=== PATIENT | male | born 1965 | race Caucasian/White ===

== ENCOUNTER → 2020-12-18 | Outpatient (CLI) | payer OTHER ==
[~2020-12-18] MED LIST: ACID REDUCER150 MG PO; ALL DAY ALLERGY10 M3 PO; ATORVASTATIN CA20 MG PO; ATORVASTATIN CA40 MG PO; BYDUREON P2 MG/0.65 SQ; CIALIS5 MG PO; CIPRO500 MG PO; ECOTRIN81 MG PO; EFFEXOR 37.537.5 MG PO; EFFEXOR XR150 MG PO; ELIQUIS 5 MG TAB5 MG PO; ENTRESTO 24 MG1 EACH PO; ETODOLAC ER500 MG PO; FAMOTIDINE20 MG PO; FLOMAX0.4 MG PO; GLUCOPHAGE1000 MG PO; IBUPROFEN800 MG PO; IMDUR ER TAB 3030 MG PO; LEVAQUIN500 MG PO; LISINOPRIL20 MG PO; LORTAB 5-325 M1 EACH PO; MIRTAZAPINE15 MG PO; NEURONTIN300 MG PO; NORCO 7.5-3251 EACH PO; NORVASC 5 MG TAB5 MG PO; NOVOLOG 10100 UNITS2 INJ; PERCOCET 7.5-31 EACH PO; PRINIVIL10 MG PO; REMERON15 MG PO; SUMATRIPTAN SU100 MG PO; TOPROL XL25 MG PO; TRESIBA SQ; TRESIBA100 UNIT/1 SC; VICTOZA 1818 MG/3 ML SC; VITAMIN D31000 UNI1 PO; [UNRECOGNIZED DRUG - CODE] IV
== END ==
LOC: HEART 5 08:13
DX: I42.0 Dilated cardiomyopathy (principal); R06.02 Shortness of breath; I20.9 Angina pectoris, unspecified
CPT/HCPCS: 78452; 93306; A9502; J2785

== ENCOUNTER → 2021-04-02 | Outpatient (CLI) | payer OTHER | LOC: KOH-I 03-23 09:00 | DX: M50.21 Other cervical disc displacement, high cervical region (principal); M25.78 Osteophyte, vertebrae | CPT/HCPCS: 72141 ==

== ENCOUNTER → 2021-05-16 | Outpatient (CLI) | payer OTHER | LOC: KOH-I 05-14 10:00 | DX: S93.122A Dislocation of metatarsophalangeal joint of left great toe, initial encounter (principal); S93.125A Dislocation of metatarsophalangeal joint of left lesser toe(s), initial encounter; X58.XXXA Exposure to other specified factors, initial encounter; L97.429 Non-pressure chronic ulcer of left heel and midfoot with unspecified severity; R93.6 Abnormal findings on diagnostic imaging of limbs | CPT/HCPCS: 73700 ==

== ENCOUNTER → 2021-07-20 | Outpatient (CLI) | payer OTHER | LOC: MRI 14:45 | DX: M86.8X7 Other osteomyelitis, ankle and foot (principal); I73.9 Peripheral vascular disease, unspecified; L03.116 Cellulitis of left lower limb | CPT/HCPCS: 73718; 93926 ==

== ENCOUNTER 2021-08-20 11:14 | Inpatient (IN) | payer OTHER ==
[~2021-08-20] VITALS: Ht 193 cm; Wt 115.7 kg
[~2021-08-20 11:14] MED LIST changes: -NEURONTIN300 MG PO; +NEURONTIN600 MG PO; +TRESIBA FL100 UNIT/1 SQ; -TRESIBA100 UNIT/1 SC
[2021-08-20] MEDS ORDERED: GABAPENTIN600 MG PO (15:48)
[2021-08-20] MEDS ORDERED: AMARYL2 MG PO (15:51)
[2021-08-20] MEDS ORDERED: HUMALOG100 UNIT/3 SQ (15:52)
[2021-08-20] MEDS ORDERED: LISINOPRIL20 MG PO (15:53)
[2021-08-20] MEDS ORDERED: FLOMAX 0.4 MG0.4 MG PO (15:54)
[2021-08-20] MEDS ORDERED: ASPIRIN EC81 MG PO (15:54)
[2021-08-20] MEDS ORDERED: ROCEPHIN 2 GM AD2 GM IV (15:57)
[2021-08-20 15:58] LABS: HEMOGLOBIN 10.7 gm/dl (14.0-17.5); WHITE BLOOD COUNT 9.8 K/UL (4.5-11.0)
[2021-08-20] MEDS ORDERED: DOCUSATE SODIU100 MG PO (15:59)
[2021-08-20] MEDS ORDERED: TRULICITY1.5 MG/0.5 SQ (15:59)
[2021-08-20] MEDS ORDERED: LEVOFLOXACIN750 MG PO (16:12)
[2021-08-20] MEDS ORDERED: BACTRIM DS TAB1 EACH PO (16:13)
[2021-08-21 03:26] LABS: HEMOGLOBIN 10.2 gm/dl (14.0-17.5); RED BLOOD COUNT 3.85 M/UL (4.20-5.50)
[2021-08-21 04:21] LABS: BUN/CREATININE RATIO 20 (0-10)
[2021-08-22 04:15] LABS: BUN/CREATININE RATIO 18 (0-10)
--- NOTE | 2021-08-22 05:53 | NUR ---
ATTEMPTED TO CHANGE LEFT FOOT DRESSING. PATIENT REFUSED STATING THAT HE WAS GOING TO HAVE IT CUT OFF LATER TODAY SO IT DOESN'T MATTER. PATIENT WAS EDUCATED AND VERBALIZED UNDERSTANDING BUT STILL REFUSED TO ALLOW ME TO DO THE DRESSING CHANGE.
[2021-08-23 06:48] LABS: BUN/CREATININE RATIO 15 (0-10)
[2021-08-24 05:25] LABS: BUN/CREATININE RATIO 12 (0-10)
--- NOTE | 2021-08-25 05:48 | NUR ---
PATIENT REFUSED DRESSING CHANGE HE STATED "LEAVE MY ROOM I DONT WANT BOTHERED". PATIENT WAS EDUCATED ON THE IMPROTANCE OF THE DRESSING CHANGE AND STILL REFUSED
[2021-08-26] MEDS ORDERED: VITAMIN C 500500 MG PO (14:52)
[2021-08-26] MEDS ORDERED: HYDROCODON-ACE1 EAC2 PO ×2 (14:52→17:30)
[2021-08-26] MEDS ORDERED: BISACODYL10 MG PR (15:01)
[2021-08-26] MEDS ORDERED: NOVOLOG MI100 UNIT/1 SC (15:16)
[2021-08-26] MEDS ORDERED: LISINOPRIL20 MG PO (15:16)
[2021-08-26] MEDS ORDERED: LISINOPRIL5 MG PO ×2 (15:19→17:30)
[2021-08-26] MEDS ORDERED: FLOMAX 0.4 MG0.4 MG PO (17:27)
[2021-08-26] MEDS ORDERED: GABAPENTIN600 MG PO (17:27)
[2021-08-26] MEDS ORDERED: NEURONTIN600 MG PO (17:27)
[2021-08-27] MEDS ORDERED: NEURONTIN600 MG PO (11:13)
[2021-08-27 12:58] LABS: RED BLOOD COUNT 3.77 M/UL (4.20-5.50); WHITE BLOOD COUNT 11.4 K/UL (4.5-11.0)
[2021-08-27 13:34] LABS: BUN/CREATININE RATIO 16 (0-10)
[2021-08-27] MEDS ORDERED: INVANZ 1 GM VIAL1 GM IV (13:45)
[2021-08-27] MEDS ORDERED: LEVOFLOXACIN750 MG PO (13:45)
--- NOTE | 2021-08-27 17:59 | NUR ---
PICC LINE DRESSING TO [facility] CHANGED, PLAN TO BE DISCHARGED, AWAITING DR MARCELO FOR FINAL ORDERS , DENIES NEEDS OR C/O A THIS TIME HE HAS HIS CALL HERNANDEZ AND PHONE IN REACH AND FAMILY AT THE BEDSIDE.
--- NOTE | 2021-08-27 18:06 | NUR ---
HOLD XARELILAN UNTIL SEEN BY DR. MARCELO PER DR. HELM. PATIENT AWARE; DESIREE CHERRY R.N.
--- NOTE | 2021-08-27 18:09 | NUR ---
SPOKE WITH DR MARCELO HE ORDERED TO CONTINUE XARELTO WITH DISCHARGE.
[2021-08-27] MEDS ORDERED: XARELTO2.5 MG PO (18:11)
--- NOTE | 2021-08-27 19:33 | NUR ---
PT D/C VERBALIZING UNDERSTANDING, SCRIPTS IN HAND, I WAS GOING TO DO DRESSING CHANGE TEACHING BUT PT DAUGHTER HAD ALREADY DONE. HE DECLINED MY TEACHING, AND THEY SAID THEYVE DONE THIS BEFORE THEY KNEW WHAT THEY WERE DOING, PT DECLINED WHEEL CHAIR SAID HE DIDN'T WANT TO WAIT FOR ONE. HE WAS STANDING USING CRUTCHES AND HAD FAMILY WITH HIM.
== END 2021-08-27 19:32 | disposition home health service (06) | DRG 240 ==
LOC: M/S 13:26
PROVIDERS: Internal Medicine Infectious Disease; Podiatrist Foot & Ankle Surgery; ADMIT Internal Medicine
PROC: 0Y6N0ZB Detachment at Left Foot, Partial 2nd Ray, Open Approach (ICD-10-PCS; 2021-08-22)
PROC: 0Y6N0ZC Detachment at Left Foot, Partial 3rd Ray, Open Approach (ICD-10-PCS; 2021-08-22)
PROC: 0Y6N0ZD Detachment at Left Foot, Partial 4th Ray, Open Approach (ICD-10-PCS; 2021-08-22)
PROC: 0Y6N0ZF Detachment at Left Foot, Partial 5th Ray, Open Approach (ICD-10-PCS; 2021-08-22)
PROC: 0Y6N0Z9 Detachment at Left Foot, Partial 1st Ray, Open Approach (ICD-10-PCS; principal; 2021-08-22 16:30)
DX: E11.52 Type 2 diabetes mellitus with diabetic peripheral angiopathy with gangrene (principal); M86.8X7 Other osteomyelitis, ankle and foot; N17.9 Acute kidney failure, unspecified; E11.69 Type 2 diabetes mellitus with other specified complication; E11.621 Type 2 diabetes mellitus with foot ulcer; L97.529 Non-pressure chronic ulcer of other part of left foot with unspecified severity; Z20.822 Contact with and (suspected) exposure to COVID-19; E11.40 Type 2 diabetes mellitus with diabetic neuropathy, unspecified; E66.9 Obesity, unspecified; D72.829 Elevated white blood cell count, unspecified; G89.29 Other chronic pain; E11.42 Type 2 diabetes mellitus with diabetic polyneuropathy; K59.03 Drug induced constipation; T40.2X5A Adverse effect of other opioids, initial encounter; N40.0 Benign prostatic hyperplasia without lower urinary tract symptoms; Z79.82 Long term (current) use of aspirin; Z91.14 Patient's other noncompliance with medication regimen; Z79.2 Long term (current) use of antibiotics; Z79.4 Long term (current) use of insulin; Z89.432 Acquired absence of left foot; Z98.890 Other specified postprocedural states; Z83.3 Family history of diabetes mellitus; Z82.49 Family history of ischemic heart disease and other diseases of the circulatory system; Z68.31 Body mass index [BMI] 31.0-31.9, adult
CPT/HCPCS: 36415; 71045; 73630; 73718; 80048; 80053; 80202; 81001; 82962; 83036; 83735; 85025; 85027; 85610; 86140; 87040; 87070; 87205; 93005; 97116; 97116-GP-CQ; 97162; 97530; 97530-GP-CQ; J1100; J1335; J1650; J2001; J2250; J2270; J2405; J2704; J2795; J3010; J3370; J7030; J7070; J7120; Q4133; U0002

== ENCOUNTER → 2021-11-15 | Outpatient (CLI) | payer OTHER ==
[~2021-11-15] MED LIST changes: +AMARYL2 MG PO; +ASPIRIN EC81 MG PO; +BACTRIM DS TAB1 EACH PO; +BISACODYL10 MG PR; +DOCUSATE SODIU100 MG PO; +FLOMAX 0.4 MG0.4 MG PO; +GABAPENTIN600 MG PO; +HUMALOG100 UNIT/3 SQ; +HYDROCODON-ACE1 EAC2 PO; +INVANZ 1 GM VIAL1 GM IV; +LEVOFLOXACIN750 MG PO; +LISINOPRIL5 MG PO; +NOVOLOG MI100 UNIT/1 SC; +ROCEPHIN 2 GM AD2 GM IV; +TRULICITY1.5 MG/0.5 SQ; +VITAMIN C 500500 MG PO; +XARELTO2.5 MG PO
== END ==
LOC: MRI 13:16
DX: Z01.810 Encounter for preprocedural cardiovascular examination (principal); I73.9 Peripheral vascular disease, unspecified; M86.60 Other chronic osteomyelitis, unspecified site; Z89.432 Acquired absence of left foot
CPT/HCPCS: 73718; 93926